=== PATIENT | female | born 1945 | race Caucasian/White ===

== ENCOUNTER → 2019-11-30 | Outpatient (CLI) | payer MEDICARE, OTHER ==
[~2019-11-30] VITALS: Ht 154.9 cm; Wt 70.4 kg
[~2019-11-30] MED LIST: ASPIRIN 81M81 MG/TA2 PO; CARDIZEM CD 12120 MG PO; EPA FISH OIL1 SGL PO; K-DUR 10 MEQ T10 MEQ PO; LANOXIN 0.120.125 MG PO; LASIX 20MG TABL20 MG PO; MULTIPLE VITAMI1 CAP PO; PLAVIX 75MG TAB75 MG PO; VITAMIN D31000 I1 PO
[2019-11-30 13:04] VITALS: BP 153/75; PULSE 58
[2019-11-30 13:55] VITALS: BP 154/77; PULSE 53
== END ==
LOC: COL.RAD 12:45
DX: E04.1 Nontoxic single thyroid nodule (principal); E06.5 Other chronic thyroiditis